=== PATIENT | female | born 1965 | race Caucasian/White ===

== ENCOUNTER → 2018-01-05 11:52 | Outpatient (CLI) | payer BC, SELFPAY ==
[2018-01-09 10:19] LABS: HPV Reflexed? NOT INDICATED
== END ==
PROVIDERS: Visit Provider Obstetrics & Gynecology
DX: Z01.419 Encounter for gynecological examination (general) (routine) without abnormal findings (principal); Z12.4 Encounter for screening for malignant neoplasm of cervix
CPT/HCPCS: 88175; G0145

== ENCOUNTER → 2019-03-02 | Outpatient (CLI) | payer BC, SELFPAY ==
[2019-03-07 13:12] LABS: HPV Reflexed? NOT INDICATED
== END | disposition home or self-care (01) ==
LOC: LABSPEC 14:01
PROVIDERS: Visit Provider Obstetrics & Gynecology
DX: Z12.4 Encounter for screening for malignant neoplasm of cervix (principal)
CPT/HCPCS: 88175; G0145

== ENCOUNTER 2021-11-03 16:22 | Outpatient (CLI) | payer BC, SELFPAY ==
[2021-11-07 15:09] LABS: HPV APTIMA, High Risk Negative (Negative)
== END 2021-11-03 23:59 | disposition short-term general hospital (02) ==
PROVIDERS: Visit Provider Student in an Organized Health Care Education/Training Program
DX: Z12.4 Encounter for screening for malignant neoplasm of cervix (principal)
CPT/HCPCS: 87624; 88175; G0145

== ENCOUNTER → 2024-08-01 | Outpatient (CLI) | payer BC, SELFPAY ==
[2024-08-01 10:57] LABS: Vitamin D,25 Hydroxy 26.2 ng/mL
== END | disposition home or self-care (01) ==
LOC: WOBLAB 09:29
PROVIDERS: Referring Provider Nurse Practitioner Women's Health; Visit Provider Nurse Practitioner Women's Health
DX: Z13.21 Encounter for screening for nutritional disorder (principal)
CPT/HCPCS: 36415; 82306

== ENCOUNTER → 2025-08-21 | Outpatient (CLI) | payer BC, SELFPAY ==
[2025-08-24 12:09] LABS: HPV APTIMA, High Risk Negative (Negative)
== END | disposition home or self-care (01) ==
LOC: LABSPEC 15:12
PROVIDERS: Visit Provider Nurse Practitioner Women's Health
DX: Z87.42 Personal history of other diseases of the female genital tract (principal)
CPT/HCPCS: 87624; 88175; G0145